=== PATIENT | female | born 1985 | race Caucasian/White ===

== ENCOUNTER 2018-12-05 17:10 | Emergency (ER) | payer BC, OTHER ==
[~2018-12-05] VITALS: Ht 170.2 cm; Wt 61.2 kg
[~2018-12-05 17:10] MED LIST: BENADRYL25 MG PO; CEPHALEXIN500 MG PO; CRANBERRY200 MG PO; FLEXERIL10 MG PO; HYDROCODON-ACE1 EA10 PO; IBUPROFEN600 MG PO; IBUPROFEN800 MG PO; MACROBID 100 M100 MG PO; NORCO 5-325 TA1 EACH PO; PENICILLIN V P500 MG PO; PERCOCET 5-3251 EACH PO; PRENATAL + DHA1 EAC1 PO; ULTRAM50 MG PO; VISTARIL25 MG PO; ZOFRAN ODT4 MG PO
[2018-12-05] MEDS ORDERED: AUGMENTIN 875-1 EACH PO (18:42)
[2018-12-05] MEDS ORDERED: KETOROLAC TROME10 MG PO (18:42)
== END 2018-12-05 18:53 | disposition home or self-care (01) ==
LOC: ED 17:10
DX: H66.92 Otitis media, unspecified, left ear (principal); J06.9 Acute upper respiratory infection, unspecified; Z88.5 Allergy status to narcotic agent; Z88.8 Allergy status to other drugs, medicaments and biological substances
CPT/HCPCS: 99282